=== PATIENT | male | born 1995 | race Caucasian/White ===

== ENCOUNTER 2017-12-25 18:42 | Inpatient (IN) | payer OTHER ==
[~2017-12-25] VITALS: Ht 182.9 cm; Wt 70.3 kg
[2017-12-26 07:50] VITALS: BP 141/85
[2017-12-26] MEDS ORDERED: BUPRENORPHINE HCL 2 MG TAB.SUBL SL PRN (08:15)
[2017-12-26] MEDS ORDERED: MAGNESIUM HYDROXIDE 30 ML LIQUID UDC PO PRN (08:15)
[2017-12-26] MEDS ORDERED: 5 DAY TAPER BUPRENORPHINE -SERENITY PROTOCOL SL PRN (08:15)
[2017-12-26] MEDS ORDERED: MIRALAX 17 GM POWD.PACK PO PRN (08:15)
[2017-12-26] MEDS ORDERED: MAG HYDROX/AL HYDROX/SIMETH 30 ML LIQUID UDC PO PRN (08:15)
--- NOTE | 2017-12-26 08:20 | NUR ---
Admission Note: Admitted a 22 year old male from the ER for medically supervised withdrawal from opiates under the care of Dr. Eduin Montanez. Alert and oriented x 4. Denies S/I or H/I at this time. Denies being on a 5150 hold or any psychiatric hospitalization. He denies any black out episodes, withdrawal induced cardiac complications or withdrawal induced delirium as well as seizures and has NKA. Patient reported being at [facility] ER in [place] due to severe withdrawal symptoms for m/b restlessness, diarrhea, and generalized discomfort from withdrawal a week prior to being admitted where he reports being prescribed Sinemet 25-500 TID PRN for restless legs, Clonidine 0.1mg PO q 6 hours for generalized discomfort, and Lomotil BID for diarrhea. Patient brought these medications from home and signed form for release of medication in possession. Patient reported that he has not taken these medications lately due to his current using. Patient reports that he was at [facility] due to chest pain and difficulty breathing. Upon review of patients medical records from the ER, it was noted that patient received Toradol 30 mg IVPB at 0215, Reglan IV at 0214 Zofran 4 mg ODT at 0654 and Pepcid 20 mg IV at 0737 today. Patient reports that he currently does not have a PCP and a psychiatrist but he does verbalize I think I might have anxiety and depression, Im not sure. VS upon admission as ff: BP 141/85, Pulse 101, Temp 98.7, O2 sat 99% via RA, RR 21, PL 6/10. Patient does not appear intoxicated at this time. He appears to be disheveled, uncombed hair, poor eye contact, dark circles around eyes, increased emotional amplitude, pale skin color, appears undernourished with slumped posture and unkempt. He states "When am I getting my meds? I'm really, really sick right now. I needs meds." Patient education provided regarding the admission process and the current plan of care. He is noted with cold, clammy skin, severe diaphoresis, severe restlessness and unable to keep still while sitting down in intake, multiple episodes of dry heaving with vomiting, complains of abdominal cramping, pupil dilation, piloerection of the skin, constant runny nose and constant tearing as well as gross tremors to BUE and BLE. Noted with COWS 33 upon admission. He reports his typical withdrawal symptoms are I get restless legs, stomach cramps, nausea, vomiting, throat hurts from vomiting and everything that has to do with my stomach. Substance Use: 1. Fentanyl with Heroin since 22 years old. Patient currently uses 2 grams of white powder Fentanyl mixed with white powder Heroin via nasal insufflation daily x 4 months. He reports that this comes in pre-mixed bags in the [facility]. Last use was on 12/25/2017 at 2000 2. OxyContin since 21 years old. Currently uses 60 mg daily via nasal insufflation x 4 months on a non-daily basis. Last use was on 12/24/2017 at 0900. Treatment History: Patient reports being in 20+ detox and treatment facilities in the past with the last 3 being at [facility] in August 2017. Patient reports detoxing at this place and going into treatment but left after 1 week and relapsed immediately. Consequences of Substance Abuse/Motivation: Patient reports multiple attempts to be sober as evidenced by reporting multiple admissions to detox and treatment facilities in the past. He reports that his longest period of sobriety was in 2017 that lasted for 6 months. He states Every time I relapse, I cause a tremendous amount of emotional pain to my mom and shes all I have. I dont want to hurt her anymore and she needs me. I want to get sober. I am done feeling this way. I love my mom too much. She needs me. She needs me now. He states he relapse while in treatment and states, While I was in treatment, some kid brought in Heroin while in we were all in there and it was a day off of Subs so I just took a hit. Heroin detox is crucial and its torture. He states that the reason why it was difficult for him to stop using was because I feel so sick every morning thats why I would always have it ready because I know Im going to be so sick which sent me to the ER in [place]. He also states, Drugs ruined everything for me, I cant stay at home with my family, I cant work. I cant go to school. I cant just stop. Its not easy. I feel that one day my mom will just see me and that is her biggest fear and my biggest fear. He reports, My brother was also on heroin but he is sober now, my mom was devastated about that and now Im doing it too. Im just hurting her and I dont want to do that anymore. She is my support. Patient verbalizes that he is willing to go to a residential treatment after detox. Orientation to the facility provided. Education given to the patient regarding units policies and procedures. Skin check done. No skin breakdown noted. Body search done. No contraband was found. Report given to Dr. Montanez regarding patients current condition. Per MD Montanez, he will enter in orders and will start patient on 5-day Subutex taper at this time. Orders noted and carried out. Addendum: 12/26/17 at 1550 by ARON POON LVN Upon body check, patient was noted with saline lock to his Right AC. IV site patent and intact. No s/s of infiltration noted.
[2017-12-26] MEDS ORDERED: DIPH1TAB PO (08:21)
[2017-12-26] MEDS ORDERED: CARB-93 PO (08:21)
[2017-12-26] MEDS ORDERED: CLON0.1T PO (08:21)
[2017-12-26] MEDS: ACETAMINOPHEN 325 MG TABLET PO PRN ×2 (08:38→14:21)
[2017-12-26] MEDS: BUPRENORPHINE HCL 2 MG TAB.SUBL SL SCH ×4 (08:38→20:48)
--- NOTE | 2017-12-26 08:38 | NUR ---
Bentyl 20 mg/Clonidine 0.1mg/Robaxin/Tylenol 650 mg PO given: Patient was noted with severe abdominal spasms. Patient was holding his stomach and in position, he was noted to be diaphoretic, chills, hot flashes, and complains of severe myalgia with tearfulness. He rates his pain a 9 out of 10. Medicated patient with Bentyl 20 mg PO, Clonidine 0.1mg PO/Robaxin 750 mg PO and Tylenol 650 mg PO as ordered. Will monitor for effectiveness.
[2017-12-26] MEDS: CLONIDINE HCL 0.1 MG TABLET PO PRN (08:39)
[2017-12-26] MEDS: MULTIVITAMINS,THERAPEUTIC TABLET PO SCH (08:39)
[2017-12-26] MEDS: DICYCLOMINE HCL 20 MG TABLET PO PRN ×2 (08:39→16:20)
[2017-12-26] MEDS: METHOCARBAMOL 750 MG TABLET PO PRN (08:39)
--- NOTE | 2017-12-26 08:50 | NUR ---
Pre-assessment: pt was assessed in intake office and was a direct admit from ER, pt was vomiting and nauseated. pt appears moderately withdrawing and verbalized he's scared because he's never been this sick, tremulous and agitated. explained protocols and procedures and pt verbalized understanding. pt will be admitted to unit. Addendum: 12/26/17 at 1938 by LILA BERGERON RN pre-admission time is 0750
[2017-12-26] MEDS: ONDANSETRON 4 MG/2 ML VIAL IM PRN ×2 (09:05→23:15)
--- NOTE | 2017-12-26 09:05 | NUR ---
Zofran 4 mg IM given: Patient noted with x 5 episodes of vomiting. Zofran 4 mg IM given as ordered. Will monitor for effectiveness.
[2017-12-26 09:17] LABS: ALANINE AMINOTRANSFERASE 34 U/L (16-63); ALKALINE PHOSPHATASE 67 U/L (50-136); ASPARTATE AMINOTRANSFERASE 14 U/L (15-37); BILIRUBIN,TOTAL 0.5 mg/dL (0.2-1.0); CARBON DIOXIDE 26 mmol/L (21-32); CHLORIDE 104 mmol/L (98-107); CREATININE 1.1 mg/dL (0.6-1.3); GLUCOSE 146 mg/dL (74-106); MAGNESIUM 1.9 mg/dL (1.8-2.4); POTASSIUM 3.5 mmol/L (3.5-5.1); TOTAL PROTEIN, SERUM 8.4 g/dL (6.4-8.2); UREA NITROGEN, BLOOD 14 mg/dL (7-18)
[2017-12-26 09:20] LABS: ETHANOL < 3 MG/DL (0-0)
[2017-12-26 09:26] LABS: BASOPHILS % (AUTO) 0.1 % (0.0-2.0); HEMATOCRIT 38.1 % (36.7-47.1); HEMOGLOBIN 13.2 g/dL (12.5-16.3); LYMPHOCYTES # (AUTO) 1.2 K/uL (20.0-40.0); LYMPHOCYTES % (AUTO) 10.9 % (20.5-51.5); MEAN CORPUSCULAR HGB CONC 35 g/dL (32.5-36.3); MEAN CORPUSCULAR VOLUME 86.6 fL (73.0-96.2); MONOCYTES # (AUTO) 0.5 K/uL (2.0-10.0); MONOCYTES % (AUTO) 4.6 % (0.0-11.0); NEUTROPHILS % (AUTO) 84.4 % (38.5-71.5); PLATELET COUNT (AUTO) 280 K/uL (152-348); WHITE BLOOD COUNT (AUTO) 10.7 K/uL (3.6-10.2)
--- NOTE | 2017-12-26 09:35 | NUR ---
Re-assessment: Zofran IM No relief noted from Zofran IM, patient continues to vomit and feel nauseated as witnessed by staff. Will notify
[2017-12-26 09:36] LABS: *AMPHETAMINE, URINE NEGATIVE (NEGATIVE); *BARBITURATE, URINE NEGATIVE (NEGATIVE); *CANNABINOID, URINE NEGATIVE (NEGATIVE); *COCCAINE, URINE NEGATIVE (NEGATIVE); *OPIATE, URINE POSITIVE (NEGATIVE); *PHENCYCLIDINE SCREEN,URINE NEGATIVE (NEGATIVE)
--- NOTE | 2017-12-26 09:38 | NUR ---
MD Communication/Re-assessment: Bentyl/Clonidine/Robaxin/Tylenol/ Per re-assessment, no relief noted from abdominal cramps, diaphoresis, and muscle aches and pains. Will medicate patient with PRNs as ordered. Notified MD.
[2017-12-26 09:58] LABS: THYROID STIMULATING HORMONE 0.465 mIU/mL (0.358-3.740)
--- NOTE | 2017-12-26 10:04 | NUR ---
Zofran 4 mg ODT given: Patient was given Zofran 4 mg ODT at 0945 but patient immediately vomitted the medication out as witnessed by senior copywriter. Med was wasted approrpriately. Zofran 4 mg ODT was given as ordered. Will monitor for effectiveness.
[2017-12-26] MEDS ORDERED: METOCLOPRAMIDE HCL 10 MG/2 ML VIAL IM PRN (10:15)
[2017-12-26] MEDS ORDERED: IV NS 1000 ML 1,000 ML IV ONE (10:15)
[2017-12-26] MEDS: ONDANSETRON ODT 4 MG TAB.RAPDIS SL PRN (10:34)
--- NOTE | 2017-12-26 10:41 | NUR ---
PRN Subutex 4 mg SL given: Patient continues to have COWS 33, presenting with severe restlessness, unable to sit still, pupil dilation, muscle aches and pain, calf pain, gross tremors, piloerection of the skin, increased anxiety and severely agitated. Stating "Nothing works. I don't feel any different. I don't want to be like this." Medicated patient with PRN Subutex 4 mg SL as ordered. Will monitor for effectiveness.
--- NOTE | 2017-12-26 11:01 | NUR ---
Re-assessment: PRN Subutex/MD Communication COWS 28, patient continues to present with nausea, gross tremors, piloerection of the skin, pupil dilation, restless legs, anxiety, agitation, and diaphoresis, with cold and clammy skin. PRN Subutex ineffective. Dr. Montanez made aware.
--- NOTE | 2017-12-26 11:04 | NUR ---
Re-assessment: Zofran 4 mg ODT/MD Communication Emesis ceased, however, patient continues to feel nauseated and continues to dry heave. Notified Dr. Montanez and ordered for patient to received Reglan IM as ordered and IV NS at 125cc/hr for hydration. Orders noted and carried out.
--- NOTE | 2017-12-26 11:08 | NUR ---
IV Patient was started on IV of NS at 125cc/hr at this time for hydration. IV site to right AC patent and intact. No s/s of infiltration noted. Patient education provided.
[2017-12-26] MEDS: HYDROXYZINE PAMOATE 25 MG CAPSULE PO PRN (11:33)
[2017-12-26] MEDS: IBUPROFEN 600 MG TABLET PO PRN (11:33)
--- NOTE | 2017-12-26 11:33 | NUR ---
Vistaril 50 mg PO/Motrin 400 mg PO given: Patient was tearful, restless and highly anxious. He is complaining of 10/10 pain to his legs. Medicated patient with Vistaril 50 mg PO and Motrin 400 mg PO as ordered.
--- NOTE | 2017-12-26 11:45 | NUR ---
MD Lucie Montanez in and evaluated the patient at this time with new orders to hold Subutex until further orders. Administer Requip and Ativan as ordered. Will continue to monitor. Orders noted and carried out.
[2017-12-26 12:00] VITALS: BP 125/78
[2017-12-26] MEDS: LORAZEPAM 1 MG TABLET PO PRN ×4 (12:07→20:48)
--- NOTE | 2017-12-26 12:07 | NUR ---
Ativan 2 mg PO given: Patient noted with piloerection of the skin, watery eyes, constant runny nose, facial flushing, severe restlessnes, gross tremors, pupil dilation, difficulty concentrating, severe anxiety and agitation. Medicated patient with Ativan 2 mg PO as ordered per MD. Will monitor for effectiveness.
--- NOTE | 2017-12-26 12:15 | NUR ---
COWS Assessment: COWS 28, patient continues to present with nausea, gross tremors, diaphoresis, cold and clammy skin, chills, hot flashes, unable to sit still, anxiety and increased agitation m/b tearfulness. He verbalizes "Please help me. I need help. I can't do this anymore." Notified Dr. Montanez. Per MD, continue to hold Subutex at this time and administer Ativan 2 mg PO as ordered. Will continue to monitor.
[2017-12-26] MEDS: ropiniROLE 1 MG TABLET PO SCH ×2 (12:22→16:20)
--- NOTE | 2017-12-26 12:33 | NUR ---
Re-assessment: Motrin and Vistaril Patient verbalizes no relief from leg pain at this time. He also states his anxiety is still high. PRN Motrin and Vistaril were ineffective at this time. Redirected patient with non-pharmacological interventions. Encouraged oral fluid intake.
--- NOTE | 2017-12-26 13:07 | NUR ---
Re-assessment: Ativan 2 mg PO Patient is seen to continue to be restless, nausea and vomiting has ceased. He continues to complain of BLE pain, gross tremors still noted. Less tearful at this time but continues to be anxious and agitated.
[2017-12-26] MEDS: LOPERAMIDE HCL 2 MG CAPSULE PO PRN (14:22)
--- NOTE | 2017-12-26 14:22 | NUR ---
Ativan 2 mg PO given/Tylenol 650 mg PO/Imodium 4 mg PO given: Patient continues to present with severe restless legs, gross tremors, anxiety, agitation, tearfulness, cold clammy skin, feelings of hot and cold, myalgia, and multiple episodes of diarrhea. Medicated patient with Ativan 2 mg PO, Tylenokl 650 mg PO and Imodium 4 mg PO as ordered. Will monitor for effectiveness.
--- NOTE | 2017-12-26 15:22 | NUR ---
Re-assessment: Ativan 2mg, Tylenol 650 mg, Imodium 4 mg Patient verbalized diarrhea has ceased, less pain currently noted to BLE and rates his pain a 5/10, he continues to exhibit severe restlessness and fidgeting. Ativan, Tylenol and Imodium effective.
[2017-12-26 16:00] VITALS: BP 133/70
--- NOTE | 2017-12-26 16:20 | NUR ---
COWS Assessment/Ativan 2 mg PO/Compazine/Clonidine 0.1mg PO given: COWS 23, patient continues to exhibit s/s of withdrawal m/b restless legs, unable to keep still while in sitting position, gross tremors, pupil dilation, increased anxiety, agitation, increased emotional amplitude, diarrhea, nausea, vomiting, dry heaving, diaphoresis and cold clammy skin. Medicated patient with Ativan 2 mg PO, Compazine IM and Clonidine 0.1mg PO as ordered. Notified MD Montanez of patient's withdrawal symptoms and trending COWS score. Per MD, OK to continue Subutex as currently scheduled. Will monitor for effectiveness.
[2017-12-26] MEDS: PROCHLORPERAZINE EDISYLATE 10 MG/2 ML VIAL IM PRN (16:23)
--- NOTE | 2017-12-26 19:10 | NUR ---
End of Shift Notes: Patient was admitted today for opiate withdrawal and was placed on a 5-day Subutex taper that was initiated at 0800. VS monitored closely. No significant abnormalities noted. Withdrawal symptoms were closely monitored. Initially, patients COWS upon admission was 33. He presented with severe restlessness, pupil dilation, facial flushing, anhedonia, difficulty concentrating, tachycardia, vomiting, nausea, diarrhea, chills, hot flashes, goosebumps, diaphoresis, cold clammy skin, abdominal cramping, dry heaving, and severe anxiety and agitation. Patient required to be medicated all day today and was given PRN Bentyl, Clonidine, Robaxin, Tylenol at 0838, Zofran 4 mg ODT at 0905, Zofran 4 mg IM at 1034, PRN Subutex 4 mg SL at 1041, Motrin, Vistaril at 1133, Ativan 2 mg PO at 1207, 1422 and 1622, as well as Tylenol 650mg, Imodium at 1422. And additional Ativan, Compazine and Clonidine at 1622 on top of his scheduled medication. He was started on Requip for severe restless legs. Patient needed to be on IV of NS at 125cc/hr for hydration due to severe nausea and vomiting with accompanied diarrhea due to withdrawal symptoms. Last COWS 23. Subutex at 1300 was held per MD, due to possibility that patient might be experiencing precipitated withdrawals which required Ativan to be used. Patients taper will continue tonight as ordered. All needs met and attended. Will continue to monitor.
--- NOTE | 2017-12-26 19:29 | NUR ---
START OF SHIFT NOTE Rcvd report from outgoing nurse. Pt is a 22 y/o male A/O to person, place, time, and purpose. Pt was admitted for medically supervised withdrawal form Opiates. Pt is on day 1 of a 5 day Subutex taper. Pt has been presenting w/ nausea w/ emesis, body aches, runny nose, tearing eyes, goose bumps, tremors, sweats, chills, body aches, restless legs, insomnia, anxiety, agitation, depressed and withdrawn mood, blunt affect, and dilated pupils. PRN Bentyl, Clonidine x 3, Tylenol x 2, Robaxin, Zofran SL x3, Zofran IM x3, Subutex, Ativan x 3, Imodium, Compezine, and Requip were given and noted ineffective by outgoing nurse. Last COWS 23 @ 1600. Call light is within reach. Pt will continue to be monitored and needs met.
--- NOTE | 2017-12-26 20:01 | NUR ---
COWS ASSESSMENT COWS 27. Pt has been presenting w/ nausea w/ emesis, body aches, runny nose, tearing eyes, goose bumps, tremors, sweats, chills, body aches, restless legs, insomnia, anxiety, agitation, depressed and withdrawn mood, blunt affect, and dilated pupils. V/S: T:98.1, P:98, RR:18, SPO2:95, BP:153/81.
[2017-12-26 20:05] VITALS: BP 153/81
--- NOTE | 2017-12-26 20:48 | NUR ---
PRN ATIVAN ADMINISTRATION Ativan 2mg given for anxiety, restless legs, and tremors. COWS 27. Will reassess pt in 1 hr.
--- NOTE | 2017-12-26 21:48 | NUR ---
PRN ATIVAN REASSESSMENT Pt states only partial relief from anxiety, restless legs, and tremors. Pt stilll appears to be visibly anxious and restless. Asked pt when he slept last. Pt stated they hadn't slept in 36hrs. Pt allo began to exhibit signs of auditory and visual hallucinations. Asked pt if he takes anything for sleep. Pt stated they take Trazodone 25mg whenever they can't sleep. Will continue to monitor pt.
[2017-12-26] MEDS ORDERED: TRAZODONE 50 MG TABLET PO ONE (23:00)
--- NOTE | 2017-12-26 23:00 | NUR ---
NURSING NOTE Pt removed his IV access. Pt was found in bed w/ his IV catheter not in place. When asked pt said "I thought was able to remove it when I needed to get up to go to the bathroom. That's what someone told me". IV site was assessed w/ no signs of tissues damage and minimal drainage. Drsg was applied. Will continue to monitor pt and site.
--- NOTE | 2017-12-26 23:15 | NUR ---
PRN ZOFRAN AND TRAZODONE ADMINISTRATION Zofran 4mg IM and Trazodone 50mg given for nausea w/ emesis and sleep. Pt c/o 3 episodes of emesis that was not coffee ground or projectile. Will reassess pt for nausea in 30 min and sleep in 1 hr.
--- NOTE | 2017-12-26 23:45 | NUR ---
SONIA TESFAYE ADMINISTRATION Pt is in bed w/ his eyes closed. Pt's respirations are unlabored and even. Addendum: 12/27/17 at 0433 by WINSTON LAMB RN REASSESSMENT NOT ADMINISTRATION
--- NOTE | 2017-12-27 00:05 | NUR ---
COWS DEFERRED. V/S REFUSED Pt denise in bed w/ his eyes closed. Pt's respirations are unlabored and even.
--- NOTE | 2017-12-27 00:15 | NUR ---
PRN TRAZODONE REASSESSMENT Pt is in bed w/ his eeys closed. Pt's respirations are unlabored and even.
--- NOTE | 2017-12-27 02:30 | NUR ---
COWS ASSESSMENT. V/S REFUSED COWS 24. Pt presenting w/ nausea w/ emesis, anxiety, restless legs, agitation, body aches, chills, and lethargy. Will administer Compazine and Ativan.
[2017-12-27] MEDS: PROCHLORPERAZINE EDISYLATE 10 MG/2 ML VIAL IM PRN ×2 (02:44→20:34)
[2017-12-27] MEDS: LORAZEPAM 1 MG TABLET PO PRN (02:44)
--- NOTE | 2017-12-27 02:44 | NUR ---
PRN COMPAZINE, ATIVAN, AND CLONIDINE ADMINISTRATION Compazine 10mg given for nausea w/ emesis. Dose 2 of 3. Ativan 2mg given for anxiety and COWS 24. Clonidine 0.1mg given for anxiety and chills. Will reassess pt in 30 for Compazine and 1 hr for Ativan and Clonidine
[2017-12-27] MEDS: CLONIDINE HCL 0.1 MG TABLET PO PRN ×3 (02:45→20:35)
--- NOTE | 2017-12-27 03:14 | NUR ---
PRN COMPAZINE REASSESSMENT Pt is in bed w/ his eyes closed. Pt's respirations are unlabored and even.
--- NOTE | 2017-12-27 03:44 | NUR ---
PRN ATIVAN AND CLONIDINE REASSESSMENT Pt is in bed w/ his eeys closed. Pt's respirations are unlabored and even.
--- NOTE | 2017-12-27 04:28 | NUR ---
COWS DEFERRED. V/S REFUSED Pt is in bed w/ his eyes closed. Pt's respirations are unlabored and even.
--- NOTE | 2017-12-27 07:04 | NUR ---
END OF SHIFT NOTE Endorsed pt to oncoming nurse. Pt is a 22 y/o male A/O to person, place, time, and purpose. Pt was admitted for medically supervised withdrawal form Opiates. Pt completed day 1 of a 5 day Subutex taper. Pt continues presenting w/ nausea w/ emesis, body aches, runny nose, tearing eyes, goose bumps, tremors, sweats, chills, body aches, restless legs, insomnia, anxiety, agitation, depressed and withdrawn mood, blunt affect, and dilated pupils. PRN Ativan 2mg x 2 given for s/s of withdrawal and agitation, noted effective. PRN Zofran 4mg IM given for nausea noted ineffective. PRN Compazine 10mg IM given for nausea, noted effective. PRN Trazodone 50mg given for sleep, noted effective. PRN Clonidine 0.1mg given for anxiety and sweats, noted effective. Pt denies any S/I or H/I. Pts fluid intake was 1730ml and he slept for 5 hrs. Last COWS 24 @ 0230. Call light is within reach.
--- NOTE | 2017-12-27 07:35 | NUR ---
Start of Shift Pt. is a 22 y/o male admitted for the medically managed withdrawal from opiates. Pt. was placed on a 5 day Subutex taper to manage his withdrawal symptoms. Endorse from previous shift pt. presented with nausea, anxiety, restless legs, insomnia, runny nose, piloerection, tremors, diaphoresis, and body aches. Received pt. in room, pt. laying in bed in the position with eyes closed. No signs of SOB noted. Safety measures in place. Will continue to monitor pt.'s behavior for safety.
[2017-12-27 08:00] VITALS: BP 102/66
--- NOTE | 2017-12-27 08:00 | NUR ---
COWS Assessment COWS of 17. Pt. in room laying on his bed in position. Pt. presents with flush facial skin, body aches, nasal congestion, nausea, tremors, anxiety and piloerection. Will given pt. medications as ordered. Will continue to monitor pt.'s behavior for safety.
[2017-12-27] MEDS ORDERED: TUBERCULIN,PURIF.PROT.DERIV. 5 TU/0.1 ML TEST ID ONE ×2 (09:00)
[2017-12-27] MEDS: MULTIVITAMINS,THERAPEUTIC TABLET PO SCH (09:25)
[2017-12-27] MEDS: ropiniROLE 1 MG TABLET PO SCH ×3 (09:27→16:50)
[2017-12-27] MEDS: BUPRENORPHINE HCL 2 MG TAB.SUBL SL SCH ×3 (09:27→20:35)
[2017-12-27] MEDS: ONDANSETRON 4 MG/2 ML VIAL IM PRN ×2 (09:30→16:51)
--- NOTE | 2017-12-27 09:30 | NUR ---
PRN Medication Pt. in room and reports 3 episodes of emesis. PRN Zofran IM given at this time. Will continue to monitor pt.'s behavior for safety, and medication effectiveness.
--- NOTE | 2017-12-27 10:15 | NUR ---
PRN Re-Assessment Pt. in room laying in bed in position. Pt reports a decreased in nausea and reports no more episodes of emesis. Medication effective. Will continue to monitor pt.'s behavior for safety.
[2017-12-27 12:00] VITALS: BP 105/62
--- NOTE | 2017-12-27 12:00 | NUR ---
COWS Assessment COWS of 16. Pt. in room laying on his bed in position. Pt. presents with flush facial skin, body aches, nasal congestion, nausea, tremors, anxiety and piloerection. Pt. compliant with medication effectiveness. Will continue to monitor pt.'s behavior for safety.
[2017-12-27 13:06] LABS: HEPATITIS B SURFACE AG Negative (Negative)
[2017-12-27 16:00] VITALS: BP 115/70
[2017-12-27] MEDS: HYDROXYZINE PAMOATE 25 MG CAPSULE PO PRN ×2 (16:59→20:36)
--- NOTE | 2017-12-27 16:59 | NUR ---
PRN Medication Pt. in room in the position, and reports 3 episodes of emesis and increased anxiety. PRN Zofran IM, Vistaril P.O., and Clonidine P.O. given at this time. Will continue to monitor pt's behavior for safety, and medication effectiveness.
--- NOTE | 2017-12-27 18:00 | NUR ---
PRN Re-Assessment Pt. in room and reports a decreased in anxiety. Pt. reports no further episodes of emesis. Medication effective. Will continue to monitor pt.'s behavior fo safety.
--- NOTE | 2017-12-27 19:00 | NUR ---
End of Shift Pt. is a 22 y/o male admitted for the medically managed withdrawal from opiates. Pt. was placed on a 5 day Subutex taper to manage his withdrawal symptoms. Throughout shift pt. presented with nausea, anxiety, restless legs, insomnia, runny nose, piloerection, tremors, diaphoresis, and body aches. Safety measures in place. Will endorse pt.'s care to oncoming shift.
--- NOTE | 2017-12-27 19:41 | NUR ---
START OF SHIFT NOTE Rcvd report from outgoing nurse. Pt is a 35 y/o male A/O to person, place, time, and purpose. Pt was admitted for medically supervised withdrawal from ETOH. Pt is on day 5 of a 5 day Ativan taper. Pt has been presenting w/ anxiety, tremors, sweats, restlessness, depressed mood, and flat affect. PRN Albuterol was given and noted effective by outgoing nurse. Last CIWA 10 @ 1600. Call light is within reach. Pt will continue to be monitored and needs met. Addendum: 12/27/17 at 2315 by WINSTON LAMB RN Wrong patient.
--- NOTE | 2017-12-27 19:41 | NUR ---
START OF SHIFT NOTE Rcvd report from outgoing nurse. Pt is a 22 y/o male A/O to person, place, time, and purpose. Pt was admitted for medically supervised withdrawal from Opiates. Pt is on day 2 of a 5 day Subutex taper. Pt has been presenting w/ anxiety, agitation, restless legs, body aches, sweats, chills, flushing, nausea w/ emesis, lethargy, confusion, depressed mood, and blunt affect. PRN Zofran IM x2, Vistaril, and Clonidine were given and noted effective by outgoing nurse. Last COWS 16 @ 1600. Call light is within reach. Pt will continue to be monitored and needs met.
[2017-12-27 20:08] VITALS: BP 123/90
--- NOTE | 2017-12-27 20:08 | NUR ---
COWS ASSESSMENT COWS 17. Pt has been presenting w/ anxiety, agitation, restless legs, body aches, sweats, chills, flushing, nausea w/ emesis, lethargy, confusion, depressed mood, and blunt affect. V/S: T:98.2, P:84, RR:16, SPO2:98, BP:123/90
--- NOTE | 2017-12-27 20:34 | NUR ---
PRN COMPAZINE ADMINISTRATION Compazine 10mg given for nausea w/ emesis. Will reassess pt in 1 hr.
--- NOTE | 2017-12-27 20:34 | NUR ---
PRN CLONIDINE, VISTARIL, AND ROBAXIN ADMINISTRATION Clonidine 0.1mg given for anxiety, agitation, chills, and sweats. Robaxin 750mg given for body aches/pain. Pt stating 6/10 pain. Will reassess pt in 1 hr.
[2017-12-27] MEDS: METHOCARBAMOL 750 MG TABLET PO PRN (20:36)
--- NOTE | 2017-12-27 21:04 | NUR ---
PRN COMPAZINE REASSESSMENT Pt is in bed w/ his eyes closed. Pt states relief from nausea. Will continue to monitor pt.
--- NOTE | 2017-12-27 21:34 | NUR ---
PRN CLONIDINE, VISTARIL, AND ROBAXIN REASSESSMENT Pt is in bed w/ his eyes closed. Pt's respirations are unlabored and even.
--- NOTE | 2017-12-28 00:05 | NUR ---
COWS DEFERRED. V/S REFUSED Pt is in bed w/ his eyes closed. Pt's respirations are unlabored and even.
[2017-12-28] MEDS: HYDROXYZINE PAMOATE 25 MG CAPSULE PO PRN ×3 (03:41→20:33)
--- NOTE | 2017-12-28 03:41 | NUR ---
PRN CLONIDINE AND VISTARIL ADMINISTRATION Clonidine 0.1mg and Vistaril 50mg given for anxiety, sweats, chills, and agitation. Pt visibly shaking and diaphoretic. During administration pt had several episodes of emesis and the medication was lost. Will obtain new tab and cap, and re-administer. After Zofran IM. Will reassess Pt in 1 hr.
[2017-12-28] MEDS: CLONIDINE HCL 0.1 MG TABLET PO PRN ×3 (03:42→20:32)
--- NOTE | 2017-12-28 03:56 | NUR ---
One-time Clonidine and Vistaril Patient vomited within 5 minutes after Clonidine and Vistaril were administered. One-time of Clonidine 0.1 mg PO and Vistaril 50 mg PO ordered.
[2017-12-28] MEDS: ONDANSETRON 4 MG/2 ML VIAL IM PRN (03:57)
--- NOTE | 2017-12-28 03:57 | NUR ---
PRN ZOFRAN IM ADMINISTRATION Zofran 4mg IM given for nausea w/ several episodes of emesis. Will reassess pt in 30min.
[2017-12-28] MEDS ORDERED: HYDROXYZINE PAMOATE 25 MG CAPSULE PO ONE (04:00)
[2017-12-28] MEDS ORDERED: CLONIDINE HCL 0.1 MG TABLET PO ONE (04:00)
[2017-12-28 04:17] VITALS: BP 123/87
--- NOTE | 2017-12-28 04:17 | NUR ---
COWS ASSESSMENT COWS 23. Pt has been presenting w/ anxiety, agitation, restless legs, body aches, sweats, chills, flushing, gross tremors, nasal stuffiness, watery eyes, nausea w/ emesis, lethargy, confusion, depressed mood, and blunt affect. V/S: T:97.9, P:89, RR:16, SPO2:99, BP:123/87.
--- NOTE | 2017-12-28 04:27 | NUR ---
DAVYN BRIEN IM REASSESSMENT Pt is in bed w/ his eyes closed. Pt's respirations are unlabored and even.
--- NOTE | 2017-12-28 04:53 | NUR ---
PRN CLONIDINE AND VISTARIL REASSESSMENT Pt is in bed w/ his eyes closed. Pt's respirations are unlabored and even.
--- NOTE | 2017-12-28 07:11 | NUR ---
END OF SHIFT NOTE Endorsed pt to oncoming nurse. Pt is a 22 y/o male A/O to person, place, time, and purpose. Pt was admitted for medically supervised withdrawal from Opiates. Pt completed day 2 of a 5 day Subutex taper. Pt continues presenting w/ anxiety, agitation, restless legs, body aches, sweats, chills, flushing, nausea w/ emesis, lethargy, confusion, depressed mood, and blunt affect. Pt denies any S/I or H/I. PRN Zofran IM and Compazine IM, Vistaril and Clonidine x2, and Raobaxin were given and noted effective. Pts fluid intake was 300ml and he slept intermittently for 9 hrs. Last COWS 23 @ 0400. Call light is within reach.
--- NOTE | 2017-12-28 07:30 | NUR ---
START OF SHIFT Endorse rcvd from ongoing nurse, client is in room, a/o x 4, he is fully ambulatory. Client presents with anxious mood, agitation, anhedonia, chills, clammy skin, depression, difficulty concentrating, tremors and flushed face. Client reports difficulty thinking clearly, emotional volatility, fatigue, insomnia, muscle aches, stomach cramps, restless legs, sweating, and nausea. PRN Robaxin 750mg PO for myalgia, (PRN Clonidine 0.1mg PO for agitation, Vistaril 50mg PO for anxiety) X 2, Compazine 10mg INJ IM for nausea. client slept 9 hrs. Last COWS 23 @ 0400. Client is on [place] precautions. Call light within reach.
[2017-12-28 08:00] VITALS: BP 120/69
[2017-12-28] MEDS ORDERED: BUPRENORPHINE HCL 2 MG TAB.SUBL SL SCH (09:00)
[2017-12-28] MEDS: ropiniROLE 1 MG TABLET PO SCH ×3 (09:39→16:18)
[2017-12-28] MEDS: MULTIVITAMINS,THERAPEUTIC TABLET PO SCH (09:40)
--- NOTE | 2017-12-28 09:55 | NUR ---
COWS 20 Client presents with anxiety, agitation, GONZALEZ, myalgia, he is in room pacing, restless, anxious, flushed face, nausea, and tremors. Client denies emesis. Subutex 4mg SL administered. Call light within reach.
[2017-12-28 12:00] VITALS: BP 119/77
[2017-12-28] MEDS: METHOCARBAMOL 750 MG TABLET PO PRN (12:18)
[2017-12-28] MEDS: ONDANSETRON ODT 4 MG TAB.RAPDIS SL PRN (12:18)
[2017-12-28] MEDS: ACETAMINOPHEN 325 MG TABLET PO PRN (12:18)
[2017-12-28] MEDS: IBUPROFEN 600 MG TABLET PO PRN (12:18)
--- NOTE | 2017-12-28 12:18 | NUR ---
COWS 18 & PRN Zofran 4mg SL, Clonidine 0.1mg PO, Vistaril 50mg PO, Tylenol 650mg PO, Motrin 600mg PO, Robaxin 750mg PO administered for nausea, no episodes of emesis, agitation, anxiety, headache, and myalgia respectively. Call light within reach.
--- NOTE | 2017-12-28 12:48 | NUR ---
Reassess PRN Zofran 4mg SL, client reports relief from nausea. Call light within reach.
--- NOTE | 2017-12-28 13:18 | NUR ---
Reassess PRN Clonidine 0.1mg PO, Vistaril 50mg PO, Tylenol 650mg PO, Motrin 600mg PO, Robaxin 750mg PO client is in bed, sounds asleep, easy to arouse. RR 16, even, non-labored. Call light within reach.
[2017-12-28] MEDS: BUPRENORPHINE HCL 2 MG TAB.SUBL SL SCH ×2 (15:51→20:32)
--- NOTE | 2017-12-28 16:00 | NUR ---
COWS 18 Client continues to present with anxiety, agitation, tremors, myalgia, nasal congestion, difficulty concentrating and clammy skin. Schedule Subutex 2mg SL administered. Call light within reach.
[2017-12-28 16:02] VITALS: BP 112/82
--- NOTE | 2017-12-28 19:27 | NUR ---
END OF SHIFT Endorse client to incoming nurse, client is in room, a/o x 4. Client continues to present with agitation, anxiety, chills, clammy skin, depression, difficulty concentrating, emotional volatility, fatigue, tremors, muscle aches/cramps, and clammy skin. Last COWS 18 @ 1600. Adequate PO fluid intake 1750 mL, void x 2. Client is not compliant with group therapy. Consumes 50% of meals. Call light within reach.
--- NOTE | 2017-12-28 19:48 | NUR ---
START OF SHIFT NOTE Rcvd report from outgoing nurse. Pt is a 22 y/o male A/O to person, place, time, and purpose. Pt was admitted for medically supervised withdrawal from Opiates. Pt is on day 3 of 5 day Subutex taper. Pt has been presenting w/ anxiety, depressed and withdrawn mood, blunt affect, restlessness, tremors, sweats, nausea w/ emesis, sweats, odorous, unkempt, disheveled appearance, body aches, and chills. PRN Clonidine, Motrin, RObaxin, Tylenol, and Zofran was given and noted effective by outgoing nurse. Last COWS 17 @ 1600. Call light is within reach. Pt will continue to be monitored and needs met.
[2017-12-28 20:04] VITALS: BP 111/78
--- NOTE | 2017-12-28 20:04 | NUR ---
COWS ASSESSMENT COWS 17. Pt has been presenting w/ anxiety, depressed and withdrawn mood, blunt affect, restlessness, tremors, sweats, nausea w/ emesis, sweats, odorous, unkempt, disheveled appearance, body aches, and chills. V/S: T:98.5, P:87, RR:16, SPO2:96, BP:111/78.
[2017-12-28] MEDS: GUAIFENESIN/DEXTROMETHORPHAN 5 ML UDC PO PRN (20:33)
[2017-12-28] MEDS: diphenhydrAMINE 50 MG CAPSULE PO PRN (20:33)
--- NOTE | 2017-12-28 20:33 | NUR ---
PRN ROBITUSSIN, BENADRYL, CLONIDINE, AND VISTARIL ADMINISTRATION Robitussin 10ml given for chest congestion. Benadryl 50mg given for sleep.Clonidine 0.1mg and Vistaril 50mg given for anxiety, agitation, and sweats. Will reassess pt in 1 hr. Addendum: 12/28/17 at 2300 by WINSTON LAMB RN *Pt also noted c/o intermittent coughing.
[2017-12-28] MEDS: LOPERAMIDE HCL 2 MG CAPSULE PO PRN (21:14)
--- NOTE | 2017-12-28 21:14 | NUR ---
PRN IMODIUM ADMINISTRATION Imodium 2mg given for diarrhea. Pt stating having 2 episodes w/ no red color. Will reassess pt in 1 hr.
--- NOTE | 2017-12-28 21:33 | NUR ---
PRN ROBITUSSIN, BENADRYL, CLONIDINE, AND VISTARIL REASSESSMENT Pt is in bed w/ his eyes closed. Pt's respirations are unlabored and even.
--- NOTE | 2017-12-28 22:14 | NUR ---
PRN IMODIUM REASSESSMENT Pt is in bed w/ his eyes closed. Pt's respirations are unlabored and even.
--- NOTE | 2017-12-29 00:03 | NUR ---
COWS DEFERRED. V/S REFUSED Pt is in bed w/ his eyes closed. Pt's respirations are unlabored and even.
[2017-12-29] MEDS: LOPERAMIDE HCL 2 MG CAPSULE PO PRN ×2 (03:59→10:54)
--- NOTE | 2017-12-29 03:59 | NUR ---
PRN IMODIUM ADMINISTRATION Imodium 2mg given for diarrhea. Pt stating having 2 episodes w/o red color. Will reassess pt in 1 hr.
--- NOTE | 2017-12-29 04:20 | NUR ---
COWS ASSESSMENT COWS 16. . Pt has been presenting w/ anxiety, depressed and withdrawn mood, blunt affect, restlessness, tremors, sweats, nausea w/ emesis, sweats, diarrhea, odorous, unkempt, disheveled appearance, body aches, and chills.
--- NOTE | 2017-12-29 04:59 | NUR ---
PRN IMODIUM REASSESSMENT Pt is in bed w/ his eyes closed. Pt's respirations are unlabored and even.
--- NOTE | 2017-12-29 07:12 | NUR ---
END OF SHIFT NOTE Endorsed pt to oncoming nurse. Pt is a 22 y/o male A/O to person, place, time, and purpose. Pt was admitted for medically supervised withdrawal from Opiates. Pt completed day 3 of 5 day Subutex taper. Pt continues presenting w/ anxiety, depressed and withdrawn mood, blunt affect, restlessness, tremors, sweats, abdominal cramping, diarrhea, sweats, body aches, and chills. PRN Clonidine, Vistaril, Benadryl, Robitussin, and Imodium x2 were given and noted effective. Pts fluid intake was 250ml and he slept for 6hrs. Last COWS 16 @ 0419. Call light is within reach.
--- NOTE | 2017-12-29 07:30 | NUR ---
START OF SHIFT Received report from manager shift nurse. Pt is lying in bed watching TV. He is a 22 yo male admitted to [facility] on 12/26 for Opiate withdrawal. He is A&O x4 and ambulatory with a steady gait. 5 Day Subutex taper started on 12/26. He has a depressed mood and flat affect. He reports stomach cramps, chills, and restlessness. He has difficulty keeping his legs still. Pt reports no diarrhea since he last received PRN Imodium. He also received PRN Vistaril, Robitussin, Benadryl, and Clonidine on manager shift. Skin is warm and moist, respirations even and unlabored. Last CIWA was 16 and he slept for 6 hours. Safety measures in place.
[2017-12-29 08:00] VITALS: BP 127/85
--- NOTE | 2017-12-29 08:18 | NUR ---
COWS Assessment Pt has a depressed mood and flat affect. He reports stomach cramps, chills, and restlessness. He is observed to be spitting in an emesis bag. His legs are constantly bouncing while he is sitting and he has goose flesh skin. He is at times holding his stomach and leaning forward. COWS score 17.
[2017-12-29] MEDS: MULTIVITAMINS,THERAPEUTIC TABLET PO SCH (08:21)
[2017-12-29] MEDS: ropiniROLE 1 MG TABLET PO SCH ×3 (08:21→18:15)
[2017-12-29] MEDS: DICYCLOMINE HCL 20 MG TABLET PO PRN ×2 (08:21→23:12)
[2017-12-29] MEDS: BUPRENORPHINE HCL 2 MG TAB.SUBL SL SCH ×3 (08:23→20:40)
--- NOTE | 2017-12-29 08:29 | NUR ---
PRN Bentyl Pt reports stomach cramping. PRN Bentyl administered.
--- NOTE | 2017-12-29 09:30 | NUR ---
PRN Bentyl reassessment PRN Bentyl somewhat effective. Pt reports that stomach cramps have somewhat subsided and he feels less uncomfortable.
--- NOTE | 2017-12-29 09:39 | NUR ---
Therapist prompted client to attend group therapy sessions, client stated at this time his withdrawal symptoms are too uncomfortable for him to attend groups.
--- NOTE | 2017-12-29 10:56 | NUR ---
PRN Imodium Pt reports 3 recent episodes of diarrhea. PRN Imodium administered.
--- NOTE | 2017-12-29 11:56 | NUR ---
PRN Imodium reassessment PRN Imodium effective. Pt no longer has diarrhea.
[2017-12-29 12:30] VITALS: BP 132/90
[2017-12-29] MEDS: CLONIDINE HCL 0.1 MG TABLET PO PRN ×2 (12:54→23:19)
--- NOTE | 2017-12-29 12:55 | NUR ---
PRN Clonidine Pt is anxious, agitated, and restless with hot and cold flashes. PRN Clonidine administered.
--- NOTE | 2017-12-29 13:55 | NUR ---
PRN Clonidine reassessment PRN Clonidine effective. Pt's legs are still. He reports feeling less anxious and somewhat more relaxed. Hot and cold flashes have subsided.
--- NOTE | 2017-12-29 15:43 | NUR ---
COWS Assessment Pt is anxious with restlessness, bouncing legs, dilated pupils, and "crawling skin" COWS score 15.
[2017-12-29 16:30] VITALS: BP 111/82
--- NOTE | 2017-12-29 17:20 | NUR ---
PRN Robitussin reassessment PRN Robitussin effective. Pt reports he feels secretions are loosening.
[2017-12-29] MEDS: GUAIFENESIN/DEXTROMETHORPHAN 5 ML UDC PO PRN (18:15)
--- NOTE | 2017-12-29 18:20 | NUR ---
PRN Robitussin Pt is spitting out clear sputum. Lung sounds clear. PRN Robitussin administered. Addendum: 12/29/17 at 1945 by YARED LOUIS RN He feels secretions in his chest and is having excess salivation. aware.
--- NOTE | 2017-12-29 19:25 | NUR ---
END OF SHIFT 320 Report provided to bag end sewer nurse. Pt is sitting in his chair watching TV. He is a 22 yo male admitted to [facility] on 12/26 for Opiate withdrawal. He is A&O x4 and ambulatory with a steady gait. 5 Day Subutex taper started on 12/26. He has had anxiety, restless legs, chills, depressed mood, excess salivation, clear sputum, and diarrhea. Pt has not been feeling well enough to attend group meetings. His appetite is poor and he feels like food is not appetizing. PRN Clonidine, Imodium, and Robitussin administered. No more reports of diarrhea after Imodium. CMP and fasting glucose ordered for tomorrow morning. Last CI 15. Safety measures in place.
--- NOTE | 2017-12-29 19:30 | NUR ---
Start of shift Patient is 22 year old male admitted on 12/26/2017. Patient is here at [facility] for medically supervised withdrawal from Opiate withdrawal. Patient is on a 5 day Subutex taper started on 12/26/2017. Patients last COWS is 15. Per endorsement patient had PRN Clonidine, Robitussin, and Imodium were administered. Staff nurse reported medication to be effective. Patient has new order for a fasting glucose for 12/30/2017. Patient is on Fall and Seizure precautions. Upon rounds patient was noted sitting on chair and watching tv. Reviewed 2100 medications and plan of care with patient and he verbalized understanding. Patient is noted to be depressed, flat affect, withdrawn, isolated, anxious and agitated. Patient asked for a PRN Benadryl for sleep and will notify when to administered. Safety measures in place, bed lock in low position, side rails up x2, and call light within reach. Will continue to monitor.
[2017-12-29 20:00] VITALS: BP 136/89
--- NOTE | 2017-12-29 20:00 | NUR ---
COWS Assessment Patient is displaying s/s of withdrawal as follow: restless legs, anxiety, agitation and mild body aches. Patients COWS=11. Respirations are even and unlabored. Safety measures in place and will continue to monitor patient.
[2017-12-29] MEDS: diphenhydrAMINE 50 MG CAPSULE PO PRN (23:11)
--- NOTE | 2017-12-29 23:11 | NUR ---
PRN Benadryl 50mg, Bentyl 20mg, Clonidine 0.1mg Patient reported stomach cramps, anxiety, agitation and difficulty falling asleep. Administered PRN Benadryl 50mg, Bentyl 20mg, Clonidine 0.1mg. Safety measures in place. Patient tolerated well and will continue to monitor.
[2017-12-30] VITALS: BP 128/90
--- NOTE | 2017-12-30 | NUR ---
COWS Deferred Patient noted in bed resting with eyes closed, breathing even and unlabored. Per protocol COWS is to be assessed while awake. Safety measures in place and will continue to monitor.
--- NOTE | 2017-12-30 00:11 | NUR ---
PRN Benadryl 50mg, Bentyl 20mg, Clonidine 0.1mg Reassessment Patient was noted in bed lying with eyes closed, respirations are even and unlabored. Medication noted to effective. Safety measures in place. Will continue to monitor.
[2017-12-30 04:00] VITALS: BP 118/86
--- NOTE | 2017-12-30 07:13 | NUR ---
End of shift Patient is 22 year old male admitted on 12/26/2017. Patient is here at [facility] for medically supervised withdrawal from Opiate withdrawal. Patient is on a 5 day Subutex taper started on 12/26/2017. Patients last COWS is 11. Patient had PRN Benadryl 50mg, Bentyl 20mg, and Clonidine for stomach cramps, anxiety and insomnia. Patient had fasting glucose done this morning at 0600. Patient is on Fall and Seizure precautions. Patient slept for 6 hours and total intake was 1,506ml. Patient voided x2 and had no bowel movements. Patient is noted to be depressed, flat affect, withdrawn, isolated, restless legs, anxious and agitated. Patient has excess saliva secretions that is clear and thin. Patient was encourage to increase fluid intake. Lungs sounds clear in all lobes, respiratory rate even and unlabored. Safety measures in place, bed lock in low position, side rails up x2, and call light within reach. Will endorse to day shift.
[2017-12-30 07:26] LABS: BASOPHILS % (AUTO) 0.5 % (0.0-2.0); EOSINOPHILS # (AUTO) 0.4 K/uL (0.0-0.7); EOSINOPHILS % (AUTO) 4.1 % (0.0-7.0); HEMATOCRIT 39.9 % (36.7-47.1); HEMOGLOBIN 13.6 g/dL (12.5-16.3); LYMPHOCYTES # (AUTO) 3.2 K/uL (20.0-40.0); LYMPHOCYTES % (AUTO) 36.2 % (20.5-51.5); MEAN CORPUSCULAR HEMOGLOBIN 29.9 uug (23.8-33.4); MEAN CORPUSCULAR HGB CONC 34 g/dL (32.5-36.3); MEAN CORPUSCULAR VOLUME 87.7 fL (73.0-96.2); MONOCYTES # (AUTO) 0.7 K/uL (2.0-10.0); MONOCYTES % (AUTO) 8.1 % (0.0-11.0); NEUTROPHILS # (AUTO) 4.6 K/uL (1.8-8.9); NEUTROPHILS % (AUTO) 51.1 % (38.5-71.5); PLATELET COUNT (AUTO) 252 K/uL (152-348); RED BLOOD CELL COUNT(AUTO) 4.55 MIL/uL (4.06-5.63)
--- NOTE | 2017-12-30 07:48 | NUR ---
START OF SHIFT NOTE Received report from night nurse, 22 year old male admitted for Opioids withdrawal. Patient continues with Subutex taper tolerated well. Per endorsement patient was given PRN Benadryl, Bentyl, Clonidine effective per night nurse, slept for 6 hours, last -. Received patient alert awake oriented x4 in his room watching TV presented with flat affect c/o anxiety, agitation, fatigue. Patient is due for scheduled medications. All safety measures in place. Will cont to monitor.
[2017-12-30 08:00] VITALS: BP 126/87
[2017-12-30] MEDS: MULTIVITAMINS,THERAPEUTIC TABLET PO SCH (08:54)
[2017-12-30] MEDS: ropiniROLE 1 MG TABLET PO SCH ×3 (08:54→16:27)
--- NOTE | 2017-12-30 08:54 | NUR ---
COWS ASSESSMENT Patient presented with depressed mood, flat facial expression, anxious, agitated, stomach, cramps, chills, stomach cramps, bilateral hand tremors noted COWS score noted-14. Patient was given his scheduled medications. Will cont to monitor.
[2017-12-30] MEDS ORDERED: BUPRENORPHINE HCL 2 MG TAB.SUBL SL SCH (09:00)
[2017-12-30 12:00] VITALS: BP 119/81
--- NOTE | 2017-12-30 12:00 | NUR ---
COWS ASSESSMENT COWS score noted-13. Patient continues to exhibits s/ of withdrawal such as , anxiety, agitation, chills, stomach cramps, bilateral hand tremors noted. Will cont to monitor.
[2017-12-30] MEDS ORDERED: METH-406 PO (14:35)
[2017-12-30] MEDS ORDERED: DICY20TA28 PO (14:35)
[2017-12-30] MEDS ORDERED: HYDR-3895 PO (14:35)
[2017-12-30] MEDS ORDERED: ONDA4TAB11 SL (14:35)
[2017-12-30] MEDS ORDERED: DIPH50CA37 PO (14:35)
[2017-12-30] MEDS ORDERED: CLON0.1T PO (14:35)
[2017-12-30 16:00] VITALS: BP 142/87
--- NOTE | 2017-12-30 16:00 | NUR ---
COWS ASSESSMENT COWS score noted-10. Patient continues to exhibits s/ of withdrawal such as , anxiety, agitation, stomach cramps, bilateral hand tremors, general body aches, diarrhea. Will cont to monitor.
[2017-12-30] MEDS: LOPERAMIDE HCL 2 MG CAPSULE PO PRN ×2 (16:32→22:59)
[2017-12-30] MEDS: IBUPROFEN 600 MG TABLET PO PRN ×2 (16:32→22:59)
[2017-12-30] MEDS: DICYCLOMINE HCL 20 MG TABLET PO PRN ×2 (16:33→23:00)
[2017-12-30] MEDS: CLONIDINE HCL 0.1 MG TABLET PO PRN ×2 (16:37→23:00)
--- NOTE | 2017-12-30 16:37 | NUR ---
PRN MEDICATIONS Patient reported large BM x1, general body aches 5/10, anxiety, agitation, restless, stomach cramps. PRN Bentyl 20mg PO, Imodium 4mg PO, Clonidine 0.1mg PO, Motrin 600mg PO given as ordered. Will cont to monitor and reassess.
--- NOTE | 2017-12-30 17:37 | NUR ---
PRN MEDICATIONS REASSESSMENT Patient reported medications were effective body aches lower to 2/10, stomach cramps and anxiety decreased. No episode of diarrhea at this time.
--- NOTE | 2017-12-30 19:11 | NUR ---
END OF SHIFT NOTE Gave report to night nurse, Patient completed his Subutex taper tolerated well. Patient presented with anxiety, agitation, excessive salivation, depressed mood, clear sputum no s/s of N/V/D reported by the patient. During shift patient did not receive any PRN. Patient did not attend any groups activities. Encourage patient to attended groups to learn new activities. Last CIWA score-12. All safety measures in place. Patient endorsed to night nurse in stable condition.
--- NOTE | 2017-12-30 19:30 | NUR ---
START OF SHIFT Pt is a 22 year old male admitted for Opioids withdrawal. Pt has completed his Subutex taper and is scheduled for discharge tomorrow.Per report, Pt did not receive any PRN medications. Pt did not attend any groups activities.Pt received in bed watching TV.Appears anxious and depressed. Last CIWA score-12. All safety measures in place. Side rails upx2, bed in low position, call light within reach. Will continue to monitor. Addendum: 12/31/17 at 0722 by GILDA REYES RN COWS SCORE WAS 12.
[2017-12-30 20:00] VITALS: BP 139/82
[2017-12-30] MEDS: diphenhydrAMINE 50 MG CAPSULE PO PRN (22:59)
[2017-12-30] MEDS: METHOCARBAMOL 750 MG TABLET PO PRN (22:59)
--- NOTE | 2017-12-30 23:00 | NUR ---
PRN MEDS Pt c/o abdominal cramps,diarrhea,anxiety,restlessness with head/body ache and is unable to sleep. PRN meds Bentyl,Imodium,Clonidine,Motrin,Robaxin and Benadryl given as ordered respectively.Will continue to monitor.
--- NOTE | 2017-12-31 | NUR ---
COWS / PRN F/U COWS deferred due to Pt being asleep.Pt is calm and resting in bed with eyes closed,breathing is even and non labored,no s/s of distress noted,will continue to monitor.
--- NOTE | 2017-12-31 04:00 | NUR ---
COWS COWS deferred due to Pt being asleep.Pt is calm and resting in bed with eyes closed,breathing is even and non labored,no s/s of distress noted,will continue to monitor.
--- NOTE | 2017-12-31 06:46 | NUR ---
END OF SHIFT Pt is a 22 year old male admitted for Opioid withdrawal. Pt has completed his Subutex taper and is scheduled for discharge today. Pt was c/o anxiety,abd cramps,diarrhea, aches / pain and insomnia.PRN medications given during the shift were Clonidine, Bentyl,Imodiun, Motrin, Robaxin and Benadryl .Medications were effective in managing the symptoms. Last CIWA score-9. Pt slept 7 hours,fluid intake was 2000 mls,voided x 2,BM x 1.All safety measures in place. Side rails upx2, bed in low position, call light within reach. Will continue to monitor. Addendum: 12/31/17 at 0721 by GILDA REYES RN CHARTED IN ERROR LAST COWS SCORE WAS 9.
--- NOTE | 2017-12-31 07:30 | NUR ---
Start of Shift Converter Supervisor received report on 22 year old male admitted to [facility] on 12/26/17 for medical management of Opiate withdrawals. Pt endorses NKA, full code and regular diet. Denies PMH, with no history of seizures noted. Pt endorses PPH of anxiety and depression. Pt has completed a 5 day Subutex taper and is scheduled to discharge to [facility] this morning. Last reported COWS 9, per NOC report. Pt was administered PRN Bentyl(cramps), Imodium(diarrhea), Clonidine(anxiety), Robaxin(myalgia), Motrin(pain) and Benadryl(insomnia) on NOC, per report. Converter Supervisor encounters pt in pts room. Pt is A/O x4 and able to make needs known. Pt is anxious and restless. Anxious affect and mood. Clear thought process and clear speech pattern. Bed in low position with wheels locked and side rails up x2. Will continue to monitor, support and encourage according to plan of care.
[2017-12-31 08:18] VITALS: BP 115/82
--- NOTE | 2017-12-31 08:30 | NUR ---
CIWA 8 Pt is anxious, restless and has complains of myalgia and nausea. Will continue to monitor, support and encourage according to plan of care.
[2017-12-31] MEDS: ropiniROLE 1 MG TABLET PO SCH (09:19)
[2017-12-31] MEDS: MULTIVITAMINS,THERAPEUTIC TABLET PO SCH (09:19)
--- NOTE | 2017-12-31 09:36 | NUR ---
Discharge Assessment Pt is A/O x4 and able to make needs known. Pt with an anxious affect and congruent mood. Pt with a clear thought and speech process. Pt denies SI/HI or A/VH. Pt is cooperative, but withdrawn and guarded with staff. Pt's last COWS 8, with VS WNL. Pt endorses anxiety related to discharge. Pt educated on discharge educational material, discharge packet and discharge medication. Educated pt on importance of continued sobriety and follow-up care. Educated pt on discharge medication, including name, route, timing, dose and indication of all prescribed medications. Prescriptions provided. Pt had all personal belongings returned, including home medication. Pt is picked up by private transportation for transportation to [facility].
== END 2017-12-31 09:36 | disposition other institution (70) | DRG 895 ==
LOC: SRC 12-26 07:36
PROVIDERS: ADMIT Family Medicine Addiction Medicine; ATTEND Family Medicine Addiction Medicine
PROC: HZ2ZZZZ Detoxification Services for Substance Abuse Treatment (ICD-10-PCS; principal; 2017-12-26)
PROC: HZ31ZZZ Individual Counseling for Substance Abuse Treatment, Behavioral (ICD-10-PCS; 2017-12-29)
DX: F11.23 Opioid dependence with withdrawal (principal); Z81.3 Family history of other psychoactive substance abuse and dependence; Z86.69 Personal history of other diseases of the nervous system and sense organs; F41.9 Anxiety disorder, unspecified
CPT/HCPCS: 36415; 80307; 80361; 83735; 84443; 85025; 86592; 86705; 86803; 87340; 87806; G0480; J0780; J2405; J2765; J7030; Q0162; Q0163

== ENCOUNTER 2017-12-26 01:36 | Emergency (ER) | payer OTHER ==
[~2017-12-26] VITALS: Ht 182.9 cm; Wt 81.6 kg
[2017-12-26] MEDS ORDERED: METOCLOPRAMIDE HCL 10 MG/2 ML VIAL IV ONE (02:00)
[2017-12-26] MEDS ORDERED: KETOROLAC TROMETHAMINE 30 MG INJ IVP ONE (02:00)
[2017-12-26] MEDS ORDERED: METOCLOPRAMIDE HCL 10 MG/2 ML VIAL ONE (02:06)
[2017-12-26] MEDS ORDERED: KETOROLAC TROMETHAMINE 30 MG INJ ONE (02:06)
[2017-12-26 02:14] LABS: BASOPHILS # (AUTO) 0.1 K/uL (0.0-8.0); BASOPHILS % (AUTO) 0.5 % (0.0-2.0); HEMATOCRIT 40.4 % (36.7-47.1); HEMOGLOBIN 13.8 g/dL (12.5-16.3); LYMPHOCYTES # (AUTO) 1.4 K/uL (20.0-40.0); LYMPHOCYTES % (AUTO) 9.4 % (20.5-51.5); MEAN CORPUSCULAR HEMOGLOBIN 29.8 uug (23.8-33.4); MEAN CORPUSCULAR HGB CONC 34 g/dL (32.5-36.3); MEAN CORPUSCULAR VOLUME 86.9 fL (73.0-96.2); MONOCYTES # (AUTO) 0.6 K/uL (2.0-10.0); MONOCYTES % (AUTO) 4.1 % (0.0-11.0); NEUTROPHILS # (AUTO) 12.6 K/uL (1.8-8.9); PLATELET COUNT (AUTO) 277 K/uL (152-348); RED BLOOD CELL COUNT(AUTO) 4.65 MIL/uL (4.06-5.63); WHITE BLOOD COUNT (AUTO) 14.6 K/uL (3.6-10.2)
[2017-12-26 02:18] LABS: CREATININE 1.3 mg/dL (0.6-1.3); POTASSIUM 3.7 mmol/L (3.5-5.1)
[2017-12-26 02:30] LABS: BILIRUBIN,DIRECT 0.2 mg/dL (0.0-0.2); BILIRUBIN,TOTAL 0.5 mg/dL (0.2-1.0); TOTAL PROTEIN, SERUM 9.1 g/dL (6.4-8.2)
--- NOTE | 2017-12-26 03:25 | NUR ---
PT GIVES ME A SUBSTANCE THAT HE STATES IS "HEROIN." HE SAYS THAT HE "NO LONGER CAN HANDLE HAVING SUBSTANCE IN HIS POCKET." RUPALI WAS NOTIFIED. SUBSTANCE WAS GIVEN TO RUPALI OFFICER VIOLETA #[id number] AND SHAD #[id number].
[2017-12-26] MEDS ORDERED: ONDANSETRON ODT 4 MG TAB.RAPDIS ONE (06:50)
[2017-12-26] MEDS ORDERED: ONDANSETRON ODT 4 MG TAB.RAPDIS SL ONE (07:00)
[2017-12-26] MEDS ORDERED: FAMOTIDINE. 20 MG/2 ML VIAL IV ONE ×2 (07:27→07:30)
--- NOTE | 2017-12-26 07:38 | NUR ---
[facility] cond[facility]. Written and verbal after care instructions given. Patient verbalizes understanding of instructions.pt walks in steady gait. pt left er accompanied by [facility] intake.
[2017-12-26 07:45] VITALS: BP 129/81
[2017-12-26] MEDS ORDERED: CARB-93 PO (08:21)
[2017-12-26] MEDS ORDERED: CLON0.1T PO (08:21)
[2017-12-26] MEDS ORDERED: DIPH1TAB PO (08:21)
[2017-12-30] MEDS ORDERED: DICY20TA28 PO (14:35)
[2017-12-30] MEDS ORDERED: CLON0.1T PO (14:35)
[2017-12-30] MEDS ORDERED: METH-406 PO (14:35)
[2017-12-30] MEDS ORDERED: HYDR-3895 PO (14:35)
[2017-12-30] MEDS ORDERED: ONDA4TAB11 SL (14:35)
[2017-12-30] MEDS ORDERED: DIPH50CA37 PO (14:35)
== END 2017-12-26 07:45 | disposition home or self-care (01) ==
LOC: ER 01:40
DX: R07.89 Other chest pain (principal); R11.2 Nausea with vomiting, unspecified; R10.33 Periumbilical pain
CPT/HCPCS: 36415; 71045; 80048; 80076; 83605 ×2; 83880; 84484; 85025; 85379; 85730; 87040 ×2; 93005; 96374; 96375; 99285; A4663; J1885; J2765; J3490; Q0162; 70030-TC